=== PATIENT | female | born 1935 | race Caucasian/White ===

== ENCOUNTER → 2018-03-21 | Outpatient (CLI) | payer MEDICARE ==
--- NOTE | 2018-03-28 16:01 | REPMRS ---
Patient History The patient states she has not had a clinical breast exam in over a year. Patient is postmenopausal. No known family history of cancer. Benign excisional biopsy of both breasts. No Hormone Replacement Therapy Digital Woman Screen Mammo: March 21, 2018 - Exam #: [id number] Bilateral CC and MLO view(s) were taken. Technologist: Laura Castro, Technologist Prior study comparison: 2016, bilateral digital mammo screening bilat, performed at [facility]. January 01, 2016, bilateral digital woman screen mammo, performed at [facility]. December 24, 2014, bilateral digital woman screen mammo, performed at [facility]. FINDINGS: There are scattered fibroglandular densities. There is a moderate amount of residual fibroglandular tissue which is fairly symmetric. There is no interval development of dominant mass, architectural distortion, or clustered microcalcification typical of malignancy. There has been no change in the appearance of the mammogram from the prior studies. 3-D tomosynthesis shows no additional findings. Assessment: BI-RADS/ACR category 1 mammogram. Negative. Recommendation Routine screening mammogram of both breasts in 1 year (for women over age 40). This patient's Lifetime Breast Cancer RIsk is estimated at 0.5 %. This mammogram was interpreted with the aid of an FDA-approved computer-aided dectection system. Electronically Signed By: Barrett Canchola MD 03/28/18 [id number]
== END ==
LOC: M WHC 13:35
PROVIDERS: ATTEND Physician Assistant
DX: Z12.31 Encounter for screening mammogram for malignant neoplasm of breast (principal)

== ENCOUNTER → 2018-07-09 | Outpatient (CLI) | payer BC, MEDICARE ==
[~2018-07-09] MED LIST: ISOVUE-370 76% 100ML VIAL (Q9967) As Ordered ONE
--- NOTE | 2018-07-09 14:52 | REP ---
CT of the chest with IV contrast: Comparison is an outside chest CT dated 06/19/2017. The location of the outside study is not indicated on the films or on the report. The studies performed for follow up of lung nodules. There are chronic stable pleural parenchymal changes in the lung apices, unchanged. There is a 5 mm pleural-based nodule posteriorly in the right upper lobe on image 16, unchanged. There are several other smaller pleural-based nodular densities adjacent to this, unchanged. There is a 14 ml ground-glass density in the left upper lobe on image 36, unchanged. There is a 5 mm lung nodule in the right upper lobe on image 55, unchanged. There is a 11 mm ground-glass density laterally in the anterior segment right lower lobe on image 81. This is unchanged. There is curvilinear scarring in the right middle lobe and lingula. There are small bulla scattered throughout the lung wynn bilaterally, particularly in the upper lobes, unchanged. There is no mediastinal or hilar lymph node enlargement. There is no axillary lymph node enlargement. There is a fat-containing hernia posteriorly on the right, unchanged. The thoracic aorta is unremarkable except for occasional calcified atheroma. The pulmonary trunk measures 3.4 cm in diameter. This is compatible with pulmonary hypertension in the appropriate clinical setting. There are hypodense thyroid nodules bilaterally, consider thyroid ultrasound. Cardiac size is enlarged. There is no pericardial effusion. There is calcified atheroma in the coronary arteries, unchanged. The visualized upper abdominal contents are unremarkable. Visualized portions of the adrenals are unremarkable. There is a small hiatal hernia. Impression: Lung nodules and ground-glass densities as described, unchanged. Bilateral curvilinear scarring in the lingula and right middle lobe, unchanged. Bilateral apical pleuroparenchymal scarring, unchanged. Bullous emphysema as described. The pulmonary trunk is slightly dilated. This is compatible with pulmonary hypertension in the appropriate clinical setting. Calcified atheroma in the coronary arteries, unchanged. Cardiomegaly. No pericardial effusion. Right fat containing Bochdalek hernia, unchanged. Small hiatal hernia, unchanged. There are hypodense thyroid nodules bilaterally, unchanged. Consider thyroid ultrasound. Electronically Signed by Ralph Brown MD 07/09/2018 02:43 P
== END ==
LOC: M RAD 13:11
PROVIDERS: ATTEND Physician Assistant
DX: R91.1 Solitary pulmonary nodule (principal)
CPT/HCPCS: 71260; Q9967

== ENCOUNTER → 2018-09-25 | Outpatient (CLI) | payer MEDICARE ==
--- NOTE | 2018-09-25 09:20 | REP ---
Clinical: Thyroid nodule. Technique: Real time perdomo scale and color evaluation using linear high frequency transducer. Comparison: None. Findings: The thyroid gland is normal in contour, size, and general parenchymal echotexture. The isthmus measures 3 mm in width. Right lobe measures 4.9 x 2.1 x 1.9 cm and includes 9 x 8 x 8 mm upper pole complex hypoechoic nonspecific nodule and 16 x 11 x 15 mm, 11 x 11 x 12 mm mid pole complex hypoechoic nonspecific nodules. Left lobe measures 4.8 x 2.1 x 1.5 cm and includes 7 x 3 895 mm mid pole complex cyst, 19 x 11 x 12 mm isoechoic mid pole nonspecific nodule, and 4 x 3 x 4 mm lower pole hypoechoic nonspecific nodule. Impression: Thyroid gland with multiple nonspecific nodules and small complex cysts as described above. Electronically Signed by Torres Mendenhall MD 09/25/2018 09:11 A
== END ==
LOC: M RAD 07:51
PROVIDERS: ATTEND Physician Assistant
DX: E04.2 Nontoxic multinodular goiter (principal)

== ENCOUNTER → 2018-12-31 | Outpatient (CLI) | payer MEDICARE ==
[2018-12-31 12:55] LABS: ABG BASE EXCESS 9.3 (-2.0-2.0); ABG HCO3 35.4 MEQ/L (22.0-26.0); ABG PARTIAL PRESSURE CO2 54.7 mmHg (35.0-45.0); ABG PARTIAL PRESSURE O2 77.1 mmHg (75.0-100.0); ABG STANDARD HCO3 33.1 MEQ/L (22.0-26.0); ABG TOTAL CO2 37.1 MEQ/L (23.0-31.0); ABG pH (ARTERIAL) 7.429 UNITS (7.350-7.450)
== END ==
LOC: M LAB 12:18
PROVIDERS: ATTEND Physician Assistant
DX: R06.09 Other forms of dyspnea (principal)

== ENCOUNTER → 2019-06-10 | Outpatient (CLI) | payer MEDICARE | LOC: M WHC 12:19 | PROVIDERS: ATTEND Physician Assistant | DX: Z12.31 Encounter for screening mammogram for malignant neoplasm of breast (principal) ==

== ENCOUNTER → 2020-06-22 | Outpatient (CLI) | payer MEDICARE ==
--- NOTE | 2020-06-22 15:20 | REPMRS ---
Patient History The patient states she has not had a clinical breast exam in over a year. No known family history of cancer. Benign excisional biopsy of both breasts. No Hormone Replacement Therapy Digital Woman Screen Mammo: June 22, 2020 - Exam #: [id number] Bilateral CC and MLO view(s) were taken. Technologist: Nayana Mcmillan, Technologist Prior study comparison: June 10, 2019, bilateral digital woman screen mammo performed at [facility]. March 21, 2018, bilateral digital woman screen mammo performed at [facility]. 2017, bilateral digital mammo screening bilat, performed at [facility]. FINDINGS: The breast tissue is heterogeneously dense. This may lower the sensitivity of mammography. The Volpara volumetric breast density category is: C. There is a needle biopsy marker clip in the right breast. There is a moderate amount of heterogeneously dense fibroglandular tissue which is fairly symmetric. There is no interval development of dominant mass, architectural distortion, or grouped microcalcification typical of malignancy. There has been no change in the appearance of the mammogram from the prior studies. 3-D tomosynthesis shows no additional findings. Assessment: BI-RADS/ACR category 2 mammogram. Benign Findings. Recommendation Routine screening mammogram of both breasts in 1 year (for women over age 40). This mammogram was interpreted with the aid of an FDA-approved computer-aided dectection system. Electronically Signed By: Barrett Canchola MD 06/22/20 [id number]
== END ==
LOC: M WHC 12:25
PROVIDERS: ATTEND Physician Assistant
DX: Z12.31 Encounter for screening mammogram for malignant neoplasm of breast (principal); Z86.018 Personal history of other benign neoplasm

== ENCOUNTER → 2021-01-29 | Outpatient (CLI) | payer MEDICARE ==
--- NOTE | 2021-01-29 14:36 | REP ---
INDICATION: PAIN LT LEG PT TO WAIT. COMPARISON: None. TECHNIQUE: Multiple ultrasonographic images of the deep venous structures of the left lower extremity were obtained from the inguinal ligament to the ankle. Venous compression techniques, color doppler imaging, and augmentation techniques were also obtained where appropriate. As per the ACR guidelines the anterior tibial vein can not be effectively evaluated. Only compression techniques in the calf on the peroneal and posterior tibial veins was attempted/performed. FINDINGS: There is no abnormal echogenic material seen within any of the visualized deep venous structures that would suggest acute thrombosis. Coaptation is unremarkable throughout. Doppler interrogation shows an expected response to respiratory variability and augmentation in the thigh. Compression techniques in the calf showed no abnormality. The color flow images show what appears to be a normal vascular pattern throughout the thigh. IMPRESSION: There is no ultrasonographic evidence of deep venous thrombosis involving any of the visualized deep venous structures of the left lower extremity as described above. <Electronically signed by Chidi Lucas > 01/29/21 [id number]
== END ==
LOC: M RAD 13:37
PROVIDERS: ATTEND Physician Assistant
DX: M79.605 Pain in left leg (principal)

== ENCOUNTER → 2021-03-29 | Outpatient (REF) | payer MEDICARE ==
[2021-03-29 18:57] LABS: ALBUMIN 3.2 GM/DL (3.2-5.2); BILIRUBIN,TOTAL 0.4 MG/DL (0.2-1.0); CALCIUM LEVEL 10.1 MG/DL (8.8-10.2); CREATININE FOR GFR 2.1 MG/DL (0.55-1.30); GLOMERULAR FILTRATION RATE 23.8 (>32); POTASSIUM SERUM 4.7 MEQ/L (3.5-5.1); TOTAL PROTEIN 6.7 GM/DL (6.4-8.2)
[2021-03-29 19:04] LABS: TOTAL 25(OH) VITAMIN D 50.8 NG/ML (30.0-100.0)
[2021-03-29 19:13] LABS: HEMOGLOBIN A1c 5.8 %
== END ==
LOC: M SFHCADAM 16:02
PROVIDERS: ATTEND Physician Assistant
DX: E55.9 Vitamin D deficiency, unspecified (principal); I10 Essential (primary) hypertension; E11.9 Type 2 diabetes mellitus without complications

== ENCOUNTER → 2021-05-28 | Outpatient (REF) | payer MEDICARE | LOC: M SFHCDERM 14:19 | PROVIDERS: ATTEND Nurse Practitioner Family | DX: C44.709 Unspecified malignant neoplasm of skin of left lower limb, including hip (principal) ==